=== PATIENT | female | born 1945 | race Caucasian/White ===

== ENCOUNTER → 2016-08-13 | Outpatient (CLI) | payer MEDICARE, BC ==
--- NOTE | 2016-08-13 15:27 | CT ---
EXAMINATION TYPE: CT sinus wo con DATE OF EXAM: 08/13/2016 3:13 PM COMPARISON: NONE HISTORY: Acute sinusitis CT DLP: 577.30 mGycm Automated exposure control for dose reduction was used. FINDINGS: There is a slight nasal septal deviation. Mastoid air cells have a normal appearance. There is mild mucosal thickening involving the maxillary sinuses bilaterally. Left ostomy oh complex is patent. There is occlusion of the right ostiomeatal complex secondary to localized mucosal thicken ing. No air-fluid levels. Small toña bullosa on the right noted. Intraorbital and intracranial structures demonstrate no acute abnormality. Nasopharynx and oropharynx symmetric. Visualized parotid glands within normal limits. IMPRESSION: MILD CHRONIC MAXILLARY SINUSITIS WITH LOCALIZED MUCOSAL THICKENING RESULTING IN OCCLUSION OF THE RIGH T OSTEOCHONDRAL COMPLEX. NO DIAGNOSTIC EVIDENCE OF ACUTE SINUSITIS.
== END | disposition home or self-care (01) ==
LOC: RADCTMAIN 14:48
PROVIDERS: ATTEND Internal Medicine Critical Care Medicine
DX: J32.0 Chronic maxillary sinusitis (principal); J34.89 Other specified disorders of nose and nasal sinuses
CPT/HCPCS: 70486

== ENCOUNTER → 2018-11-20 | Outpatient (CLI) | payer MEDICARE, BC ==
--- NOTE | 2018-11-20 16:11 | CT ---
EXAMINATION TYPE: CT sinus wo con DATE OF EXAM: 11/20/2018 COMPARISON: CT sinuses August 13, 2016 HISTORY: Chronic sinusitis CT DLP: 599.8 mGycm. Automated Exposure Control for Dose Reduction was Utilized. TECHNIQUE: CT scan of the sinuses is performed without contrast, axial images are obtained, coronal r eformatted images are also reviewed. FINDINGS: Mild mucosal thickening left greater than right inferior maxillary sinuses is slightly more prominent than prior. Remainder paranasal sinuses are clear.. The ostiomeatal complex is patent juan aterally on the coronal images. Visualized portion of mastoid air cells show no abnormal opacification. The globes are intact bilate rally. Visualized portion of brain parenchyma shows diffuse cerebral atrophy. IMPRESSION: Mild chronic paranasal sinus disease. No acute sinusitis.
== END | disposition home or self-care (01) ==
LOC: RADCTMAIN 15:47
PROVIDERS: ATTEND Otolaryngology
DX: J32.8 Other chronic sinusitis (principal)
CPT/HCPCS: 70486

== ENCOUNTER → 2018-11-24 | Outpatient (CLI) | payer MEDICARE, BC ==
[2018-11-24 09:59] LABS: Basophils # (A) 0.1 k/uL (0-0.2); Basophils % (A) 1 %; Eosinophils # (A) 0.3 k/uL (0-0.7); Eosinophils % (A) 5 %; HCT 42.9 % (34.0-46.0); HGB 13.9 gm/dL (11.4-16.0); Lymphocytes # (A) 2.1 k/uL (1.0-4.8); Lymphocytes % (A) 40 %; MCH 28.9 pg (25.0-35.0); MCHC 32.4 g/dL (31.0-37.0); MCV 89.3 fL (80.0-100.0); Mean Platelet Volume 7.8; Monocytes # (A) 0.3 k/uL (0-1.0); Monocytes % (A) 5 %; Neutrophils # (A) 2.4 k/uL (1.3-7.7); Neutrophils % (A) 46 %; Platelet Count 226 k/uL (150-450); RDW 13.3 % (11.5-15.5); WBC 5.2 k/uL (3.8-10.6)
[2018-11-24 10:20] LABS: Albumin 4.3 g/dL (3.5-5.0); Calcium 10.1 mg/dL (8.4-10.2); Potassium 4.4 mmol/L (3.5-5.1); Total Bilirubin 0.7 mg/dL (0.2-1.3); Total Protein 6.9 g/dL (6.3-8.2); Uric Acid 4.8 mg/dL (3.7-7.4)
--- NOTE | 2018-11-24 10:54 | US ---
EXAMINATION TYPE: US venous doppler duplex LE RT DATE OF EXAM: 11/24/2018 10:45 AM COMPARISON: NONE CLINICAL HISTORY: M79.604 PAIN IN RT LEG. SIDE PERFORMED: Right TECHNIQUE: The lower extremity deep venous system is examined utilizing real time linear array sonog silvana with graded compression, doppler sonography and color-flow sonography. VESSELS IMAGED: External Iliac Vein (EIV) Common Femoral Vein Deep Femoral Vein Greater Saphenous Vein * Femoral Vein Popliteal Vein Small Saphenous Vein * Proximal Calf Veins (* superficial vessels) Grayscale, color doppler, spectral doppler imaging performed of the deep veins of the right lower ext remity. There is normal flow, compressibility, vascular waveforms. Right Leg: Negative for DVT IMPRESSION: No sonographic evidence of deep venous thrombosis within the right lower extremity.
--- NOTE | 2018-11-24 11:25 | XR ---
Right ankle HISTORY: Right ankle pain 3 views of the right ankle Bone mineralization, joint spaces and alignment are maintained. No significant soft tissue swelling. There is a plantar calcaneal spur. Enthesophyte present at the insertion of the Achilles tendon. Dege nerative change at the metatarsophalangeal joint of the first digit. IMPRESSION: Plantar spur, additional findings above.
== END ==
LOC: RADUSWWP 08:58
PROVIDERS: ATTEND Internal Medicine Critical Care Medicine
DX: M79.604 Pain in right leg (principal); M77.31 Calcaneal spur, right foot; M19.071 Primary osteoarthritis, right ankle and foot; Z00.00 Encounter for general adult medical examination without abnormal findings; K21.9 Gastro-esophageal reflux disease without esophagitis; M79.609 Pain in unspecified limb; J45.909 Unspecified asthma, uncomplicated; J32.0 Chronic maxillary sinusitis
CPT/HCPCS: 36415; 80053; 80061; 82306; 84443; 84550; 85025

== ENCOUNTER → 2020-04-27 | Outpatient (CLI) | payer MEDICARE, BC | END | disposition home or self-care (01) | LOC: LABWHC1 16:30 | PROVIDERS: ATTEND Internal Medicine Critical Care Medicine | DX: J30.2 Other seasonal allergic rhinitis (principal) | CPT/HCPCS: 36415; 82785 ==

== ENCOUNTER → 2020-08-15 | Outpatient (CLI) | payer MEDICARE, BC ==
--- NOTE | 2020-08-15 08:50 | CT ---
EXAMINATION TYPE: CT sinus wo con DATE OF EXAM: 08/15/2020 COMPARISON: 11/20/2018 HISTORY: Chronic sinusitis CT DLP: 616 mGycm CONTRAST: 0 mL of Isovue 300 The paranasal sinuses are examined in the axial plane at 2 mm thick sections. Reconstructed images i n the coronal plane were obtained. There is dental amalgam scatter artifact Mild mucosal thickenings within the bilateral maxillary sinuses. There is a partial septation in the anterior right maxillary sinus. There is mild scattered ethmoid air cell mucosal thickening within th e anterior bilateral ethmoid air cells and posterior bilateral ethmoid air cells. The sphenoid sinus es are clear. The frontal sinuses are clear. The septum is evaluated. There is septal deviation to the left. There is obstruction of the right ostiomeatal unit. Left ostiomeatal unit is patent. IMPRESSIONS: 1. Obstruction of the right ostiomeatal unit. 2. Mild mucosal thickening through the bilateral maxillary sinuses and anterior and posterior bilater al ethmoid air cells. This is mildly progressive from the 2019 comparison.
== END | disposition home or self-care (01) ==
LOC: RADCTMAIN 07:54
PROVIDERS: ATTEND Otolaryngology
DX: J34.89 Other specified disorders of nose and nasal sinuses (principal); J32.9 Chronic sinusitis, unspecified
CPT/HCPCS: 70486

== ENCOUNTER → 2020-12-27 | Outpatient (CLI) | payer MEDICARE, BC ==
--- NOTE | 2020-12-27 16:48 | CT ---
EXAMINATION TYPE: CT soft tissue neck w con DATE OF EXAM: 12/27/2020 HISTORY: Pain to right side of neck and face x years. COMPARISON: NONE CT DLP: 343.8 mGycm. Automated Exposure Control for Dose Reduction was Utilized. TECHNIQUE: CT scan of the neck is performed with IV Contrast, patient injected with 100 mL of Isovue M300, axial images are obtained, coronal and sagittal reformatted images are reviewed. FINDINGS: Airway: No gross abnormality seen. Parotid/submandibular glands: No gross abnormality seen. Carotid/Vascular Structures: Mild to moderate calcified plaque bilateral carotid bulb level without s ignificant stenosis. Tortuous course to the common carotid arteries bilaterally noted. Osseous Structures: Moderate disc space narrowing C6-C7 level. Moderate disc space narrowing right C3 -C4 level Other: Mild to moderate mucosal thickening involving the bilateral maxillary sinuses with 1.5 cm muco us retention cyst or polyp in the inferior right maxillary sinus. [id number] mucosal thickening involving the ethmoid sinuses bilaterally. Mild to moderate mucosal thickening involving the right s phenoid sinus. No definitive abnormal greater than 1 cm neck adenopathy. Parapharyngeal fat spaces are maintained bi laterally. Some streak artifact at level of the oral cavity makes evaluation at this level slightly s uboptimal. IMPRESSION: No obvious mass or adenopathy.
== END | disposition home or self-care (01) ==
LOC: RADCTMAIN 14:22
PROVIDERS: ATTEND Otolaryngology
DX: M54.2 Cervicalgia (principal); R22.1 Localized swelling, mass and lump, neck
CPT/HCPCS: 82565; 84520; 70491; 36415; Q9967

== ENCOUNTER → 2022-10-14 | Outpatient (CLI) | payer MEDICARE, BC ==
[2022-10-15 10:01] LABS: Alternaria alternata IgE <0.10 kU/L; Aspergillus fumagatus IgE <0.10 kU/L; Birch IgE <0.10 kU/L; Cat Epith & Dander IgE 2.62 kU/L; Cladosporian herbarum IgE <0.10 kU/L; Cockroach IgE <0.10 kU/L; Dermato. farinae IgE 0.17 kU/L; Dog Dander IgE <0.10 kU/L; Elm IgE <0.10 kU/L; Maple (Box Elder) IgE <0.10 kU/L; Oak IgE <0.10 kU/L; Ragweed,Common IgE <0.10 kU/L; Red Top (Bentgrass) IgE <0.10 kU/L
== END | disposition home or self-care (01) ==
LOC: LABWHC1 14:38
PROVIDERS: ATTEND Internal Medicine Critical Care Medicine
DX: J45.40 Moderate persistent asthma, uncomplicated (principal)
CPT/HCPCS: 36415; 82785; 85008; 86003

== ENCOUNTER → 2025-02-08 | Outpatient (CLI) | payer MEDICARE, OTHER ==
--- NOTE | 2025-02-08 09:51 | CT ---
EXAMINATION TYPE: CT sinus wo con CT DLP: 569.1 mGycm, Automated exposure control for dose reduction was used. DATE OF EXAM: 02/08/2025 9:29 AM COMPARISON: CT sinus 08/15/2020, 11/20/2018, 08/13/2016. CLINICAL INDICATION:Female, 79 years old with history of J32.9 CHRONIC SINUSITIS, UNSPECIFIED; PHH, C HRONIC SINUSITIS CONTRAST: None. TECHNIQUE: Multiple thin axial images were obtained through the paranasal sinuses without the use of IV contrast. Additional coronal and sagittal reformatted images were submitted for evaluation. FINDINGS: Frontal sinuses: Normally developed and aerated. Frontal Recess: The left frontal recess is clear. Op acification of the right frontal recess. Maxillary Sinuses: Normally developed. Minimal mucosal thickening of both maxillary sinuses. Maxillary Infundibula([facility]): Postsurgical changes from bilateral antrostomies. No significant narrowin g. Ethmoid sinuses: Normally developed. Mild mucosal thickening of the anterior right ethmoid sinus. Min imal mucosal thickening in the posterior left ethmoid sinus. Ethmoidal notch: Supraorbital pneumatiza tion is identified. Sphenoid sinuses: Normally developed. Minimal mucosal thickening of both sphenoid sinuses. There is s ellar sphenoid sinus pneumatization without evidence of dehiscence. No dehiscence of carotid canal. No evidence of optic nerve dehiscence within the sphenoid sinus. No evidence of Onodi cells. Sphenoe thmoidal recesses: Clear. Nasal septum: Within normal limits.. Nasal Turbinates: Within normal limits. Mastoid air cells & middle ears: The air cells are clear. The middle ears are grossly unremarkable. Modified Soft tissues & Brain: Partially seen without gross abnormality. Bilateral aphakia. Other: Cribriform plate demonstrates symmetric Keros classification type 3 cribriform plate. No evidence of bony dehiscence of skull base. Lamina papyracea is intact without evidence of remote orbital fracture or orbital prolapse into the e thmoid sinus. IMPRESSION: Postsurgical changes from bilateral maxillary antrostomy. Minimal scattered paranasal sinus disease. Opacification of the right frontal recess. [facility], , 02/08/2025 9:48 AM
== END | disposition home or self-care (01) ==
LOC: RADCTMAIN 09:14
PROVIDERS: ATTEND Otolaryngology
DX: J32.9 Chronic sinusitis, unspecified (principal); J34.89 Other specified disorders of nose and nasal sinuses
CPT/HCPCS: 70486